=== PATIENT | male | born 1980 | race Caucasian/White ===

== ENCOUNTER 2024-06-03 17:54 | Emergency (ER) | payer MEDICAID ==
[~2024-06-03] VITALS: Ht 182.9 cm; Wt 81.6 kg
[2024-06-03 18:17] VITALS: BP 128/82; PULSE 79; RESP 16; TEMP 98.3; O2SAT 98
[2024-06-03] MEDS ORDERED: OFLO5DRO4 LEFT EAR (20:13)
== END 2024-06-03 21:12 | disposition home or self-care (01) ==
LOC: ER 17:54
DX: H60.92 Unspecified otitis externa, left ear (principal)
CPT/HCPCS: 99283

== ENCOUNTER 2024-08-06 13:11 | Emergency (ER) | payer MEDICAID ==
[~2024-08-06] VITALS: Ht 182.9 cm; Wt 82.0 kg
[~2024-08-06 13:11] MED LIST: OFLO5DRO4 LEFT EAR
[2024-08-06 13:22] VITALS: O2SAT 98
[2024-08-06 16:48] VITALS: BP 125/81; PULSE 67; RESP 18; TEMP 37.05852; O2SAT 97
[2024-08-06] MEDS ORDERED: IBUPROFEN 800MG TABLET PO ONE (17:30)
[2024-08-06] MEDS: IBUPROFEN 800MG TABLET PO NR (18:05)
[2024-08-06] MEDS: ACETAMINOPHEN 325MG TABLET PO ONE (18:06)
[2024-08-06] MEDS ORDERED: TOPUD PO (19:19)
[2024-08-06] MEDS ORDERED: IBUP-2029 MT (19:19)
[2024-08-06] MEDS ORDERED: LIDO700A30 TP (19:19)
== END 2024-08-06 19:33 | disposition home or self-care (01) ==
LOC: ER 13:47
DX: G89.11 Acute pain due to trauma (principal); R07.89 Other chest pain; Z98.890 Other specified postprocedural states
CPT/HCPCS: 71101; 99283